=== PATIENT | female | born 2005 | race Caucasian/White ===

== ENCOUNTER 2025-08-17 20:37 | Emergency (ER) | payer OTHER ==
[2025-08-17] MEDS ORDERED: ONDANSETRON 4 MG/2 ML VIAL ONE (22:50)
[2025-08-17] MEDS ORDERED: NA CHLORIDE 0.9% 1,000 ML ONE (22:50)
[2025-08-17] MEDS ORDERED: KETOROLAC 30 MG/ML INJ ONE (22:50)
[2025-08-17 23:34] LABS: Absolute Lymphocytes (CBC) 3.0 K/uL (0.7-4.9); Hematocrit 42.1 % (36.0-45.0); Hemoglobin 14.3 g/dL (12.0-15.0); MCH 27.7 pg (27.0-35.0); MCHC 34.1 g/dL (32.0-36.0); MCV 81.2 fL (80-100); MPV 7.8 fL (7.6-11.3); Nucleated RBC Absolute Count 0.0 (0-0); Nucleated Red Blood Cells % 0.2 % (0-0); RBC Red Blood Cell Count 5.18 M/uL (3.86-4.86); White Blood Count 11.70 thou/uL (4.3-10.9)
[2025-08-17 23:45] LABS: ALT/SGPT 25.0 U/L (13-56); AST/SGOT 15.0 U/L (15-37); Albumin 3.6 g/dL (3.4-5.0); Albumin/Globulin Ratio 1.0 (1.1-1.8); Alkaline Phosphatase 60.0 U/L (45-117); Anion Gap 7.9 mEq/L (5.0-15.0); BUN Blood Urea Nitrogen 12.0 mg/dL (7-18); Globulin 3.7 g/dL (2.3-3.5); Glucose Level 89.0 mg/dL (74-106); Lipase 19.0 U/L (13-75); Potassium 3.9 mEq/L (3.5-5.1)
--- NOTE | 2025-08-18 01:07 | EDPHYS ---
Physician Documentation [facility] Name: Dionne Belle Age: 20 yrs Sex: Female : 2005 Arrival Date: 08/17/2025 Time: 20:37 Bed 8 Private MD: ED Physician Asher Soto HPI: 08/17 20:55 This 20 yrs old Female presents to ER via Ambulatory with complaints of Abdominal Pain, sb4 Vomiting/Diarrhea. 20:55 Patient reports lower abdominal pain/cramping and diarrhea for about a week now. She sb4 states that she noticed her diarrhea has been looking very "stringy" and is concerned she has worms. States she has vomited once or twice but is able to hold food and liquids down. Denies any fever or chills. Denies any urinary symptoms. Denies any recent antibiotic use. Denies any medical history. 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 - Infectious Disease History:: Denies. - Social history:: Smoking status: Reported history of juuling and/or vaping. ROS: 20:55 Constitutional: Negative for fever, chills, and weight loss, sb4 20:55 Abdomen/GI: Positive for abdominal pain, nausea, vomiting, and diarrhea, abdominal cramps, 20:55 All other systems are negative, Exam: 20:55 Head/Face: Normocephalic, atraumatic. Eyes: Extra-ocular motions intact. Periorbital sb4 areas with no swelling, redness, or edema. ENT: Mucous membranes moist. Cardiovascular: Regular rate and rhythm with a normal S1 and S2. Respiratory: No increased work of breathing, no retractions or nasal flaring. Abdomen/GI: Soft, non-tender, no distension. Skin: Warm, dry with normal turgor. Normal color with no rashes, no lesions, and no evidence of cellulitis. 20:55 Constitutional: The patient appears in no acute distress, alert, awake, obese, Vital Signs: 20:48 BP 180 / 102; Pulse 100; Resp 18; Temp 98.9; Pulse Ox 100% ; Weight 122.47 kg; Height 5 cp4 ft. 2 in. ; Pain 04/20; 08/18 00:36 BP 144 / 81; Pulse 98; Resp 19; Pulse Ox 99% on R/A; kd3 01:11 BP 150 / 79; Pulse 96; Resp 16; kb4 08/17 20:48 Body Mass Index 49.38 (122.47 kg, 157.48 cm) cp4 08/17 20:48 Pain Scale: Adult cp4 MDM: 08/17 20:41 Medical Screening Exam initiated sb4 21:00 Differential diagnosis: appendicitis, Cholelithiasis, non-specific abd pain, urinary sb4 tract infection, colitis. 08/18 01:25 Data reviewed: vital signs, nurses notes, lab test result(s), and as a result, I will sb4 discharge patient. Counseling: I had a detailed discussion with the patient and/or guardian regarding the historical points, exam findings, and any diagnostic results supporting the discharge/admit diagnosis, lab results, the need for outpatient follow up, for definitive care, to return to the emergency department if symptoms worsen or persist or if there are any questions or concerns that arise at home. ED course: Patient decided that she will leave now and just follow-up with her primary care. 08/17 20:54 Order name: CBC with Diff; Complete Time: 23:36 sb4 08/17 20:54 Order name: CMP; Complete Time: 23:46 sb4 08/17 20:54 Order name: Lipase; Complete Time: 23:46 sb4 08/17 20:54 Order name: IV Saline Lock; Complete Time: 23:31 sb4 08/17 20:54 Order name: Labs collected and sent; Complete Time: 23:31 sb4 Administered Medications: 08/17 23:17 Drug: TORadol - Ketorolac IVP 15 mg IVP once Route: IVP; Site: right forearm; [facility] 08/18 01:14 Follow up: Response: No adverse reaction [facility] 08/17 23:17 Drug: Ondansetron IVP 4 mg IVP once; over 2 minutes Route: IVP; Site: right forearm; [facility] 08/18 01:14 Follow up: Response: No adverse reaction [facility] 08/17 23:17 Drug: NS 0.9% IV 1000 ml IV at 1 bolus Per protocol; to be given as a bolus over 60 kb4 minutes Route: IV; Rate: 1 bolus; Site: right forearm; 08/18 01:14 Follow up: Response: No adverse reaction kb4 01:15 Follow up: Response: No adverse reaction; IV Status: Completed infusion kb4 Disposition: 06:25 Co-signature as Attending Physician, Asher Soto MD I agree with the assessment sp4 and plan of care. I reviewed the patient's care provided by the Advanced Practice Provider and agree with the diagnosis and treatment plan. Disposition Summary: 08/18/25 01:07 Discharge Ordered Notes: Location: Home sb4 Problem: new sb4 Symptoms: are unchanged sb4 Condition: Stable sb4 Diagnosis - Lower abdominal pain, unspecified sb4 - Diarrhea, unspecified sb4 Followup: sb4 - With: Private Physician - When: As needed - Reason: Recheck today's complaints, Re-evaluation by your physician Discharge Instructions: - Discharge Summary Sheet sb4 - Food Choices to Help Relieve Diarrhea, Adult sb4 - Abdominal Pain, Adult, [id number] sb4 Forms: - Patient Portal Instructions sb4 - Leadership Thank You Letter sb4 Signatures: Dispatcher [employer] Petra Espana PA-C PADuncanC sb4 Asher Soto MD MD sp4 Alexia Rosario 4 Kiana Baer RN RN kb4 Corrections: (The following items were deleted from the chart) 08/17 20:54 20:54 CBC+H.LAB.BRZ ordered. EDMS EDMS 20:54 20:54 COMPREHENSIVE METABOLIC PANEL+C.LAB.BRZ ordered. EDMS EDMS 20:54 20:54 LIPASE+C.LAB.BRZ ordered. EDMS EDMS 20:54 20:54 Test, Urine+UC.LAB.BRZ ordered. EDMS EDMS 20:54 20:54 UA Rfx Severino Cult if indicated+U.LAB.BRZ ordered. EDMS EDMS 20:54 20:54 Fecal Leukocyte Stain+BA.LAB.BRZ ordered. EDMS EDMS 20:54 20:54 Ova and Parasites+MR.LAB.BRZ ordered. EDMS EDMS 20:54 20:54 Rotavirus Antigen+BA.LAB.BRZ ordered. EDMS EDMS 20:54 20:54 Stool Culture+BA.LAB.BRZ ordered. EDMS EDMS 20:54 20:54 C.difficile GDH Ag \\T\\ Toxin AB+LAB.BRZ ordered. EDMS EDMS
--- NOTE | 2025-08-18 01:07 | ER ---
Nurse's Notes [facility] Name: Dionne Belle Age: 20 yrs Sex: Female : 2005 Arrival Date: 08/17/2025 Time: 20:37 Bed 8 Private MD: Diagnosis: Lower abdominal pain, unspecified;Diarrhea, unspecified Presentation: 08/17 20:48 Chief complaint: Patient states: abdominal pain, diarrhea, and vomiting that started cp4 last week. Coronavirus screen: Client denies travel out of the [place] in the last 14 days. At this time, the client does not indicate any symptoms associated with coronavirus-19. Ebola Screen: No symptoms or risks identified at this time. Initial Sepsis Screen: Does the patient meet any 2 criteria? HR > 90 bpm. No. Patient's initial sepsis screen is negative. Does the patient have a suspected source of infection? No. Patient's initial sepsis screen is negative. Risk Assessment: Do you want to hurt yourself or someone else? Patient reports no desire to harm self or others. Onset of symptoms was August 11, 2025. 20:48 Method Of Arrival: Ambulatory cp4 20:48 Acuity: ALINE 3 cp4 Triage Assessment: 20:50 General: Appears in no apparent distress. uncomfortable, Behavior is calm, cooperative, cp4 appropriate for age. Pain: Complains of pain in abdomen Pain does not radiate. Pain currently is 6 out of 10 on a pain scale. GI: Reports diarrhea, nausea, vomiting. 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 - Infectious Disease History:: Denies. - Social history:: Smoking status: Reported history of juuling and/or vaping. Screenin:34 [facility] ED Fall Risk Assessment (Adult) History of falling in the last 3 months, kb4 including since admission No falls in past 3 months (0 pts) Confusion or Disorientation No (0 pts) Intoxicated or Sedated No (0 pts) Impaired Gait No (0 pts) Mobility Assist Device Used No (0 pt) Altered Elimination Yes (1 pt) Score/Fall Risk Level 0 - 2 = Low Risk. Abuse screen: Denies threats or abuse. Denies injuries from another. Nutritional screening: No deficits noted. Tuberculosis screening: No symptoms or risk factors identified. Assessment: 23:33 Reassessment: Patient appears in no apparent distress at this time. Patient and/or kb4 family updated on plan of care and expected duration. Pain level reassessed. Patient is alert, oriented x 3, equal unlabored respirations, skin warm/dry/pink. General: Appears in no apparent distress. comfortable, Behavior is calm, cooperative. Neuro: Level of Consciousness is awake, alert, obeys commands, Oriented to person, place, time, situation. Cardiovascular: Patient's skin is warm and dry. Respiratory: Airway is patent Respiratory effort is even, unlabored, Respiratory pattern is regular, symmetrical. GI: Abdomen is round Bowel sounds present X 4 quads. Abd is soft and non tender X 4 quads. : No signs and/or symptoms were reported regarding the genitourinary system. EENT: No signs and/or symptoms were reported regarding the EENT system. Derm: No signs and/or symptoms reported regarding the dermatologic system. Musculoskeletal: No signs and/or symptoms reported regarding the musculoskeletal system. 08/18 01:10 Reassessment: pt requested to leave hospital and follow up with PCP due to waiting kb4 times. 01:11 Reassessment: Patient and/or family updated on plan of care and expected duration. Pain kb4 level reassessed. Patient is alert, oriented x 3, equal unlabored respirations, skin warm/dry/pink. General: Appears in no apparent distress. Vital Signs: 08/17 20:48 BP 180 / 102; Pulse 100; Resp 18; Temp 98.9; Pulse Ox 100% ; Weight 122.47 kg; Height 5 cp4 ft. 2 in. ; Pain 6/10; 08/18 00:36 BP 144 / 81; Pulse 98; Resp 19; Pulse Ox 99% on R/A; kd3 01:11 BP 150 / 79; Pulse 96; Resp 16; kb4 08/17 20:48 Body Mass Index 49.38 (122.47 kg, 157.48 cm) cp4 08/17 20:48 Pain Scale: Adult cp4 ED Course: 08/17 20:40 Patient arrived in ED. mr 20:41 Petra Myers PA-C is PHCP. sb4 20:41 Shyla Baumann MD is Attending Physician. sb4 20:50 Triage completed. cp4 20:50 Arm band placed on right wrist. Patient placed in waiting room. cp4 22:45 Asher Soto MD is Attending Physician. sb4 22:47 Kiana Baer, ADELFO is Primary Nurse. kb4 23:34 Patient has correct armband on for positive identification. kb4 08/18 00:00 Inserted saline lock: 20 gauge in right forearm, using aseptic technique. kb4 01:12 No provider procedures requiring assistance completed. IV discontinued, intact, kb4 bleeding controlled, No redness/swelling at site. Pressure dressing applied. 01:13 Provided Education on: follow up care . kb4 Administered Medications: 08/17 23:17 Drug: TORadol - Ketorolac IVP 15 mg IVP once Route: IVP; Site: right forearm; kb4 08/18 01:14 Follow up: Response: No adverse reaction 4 08/17 23:17 Drug: Ondansetron IVP 4 mg IVP once; over 2 minutes Route: IVP; Site: right forearm; kb4 08/18 01:14 Follow up: Response: No adverse reaction 4 08/17 23:17 Drug: NS 0.9% IV 1000 ml IV at 1 bolus Per protocol; to be given as a bolus over 60 kb4 minutes Route: IV; Rate: 1 bolus; Site: right forearm; 08/18 01:14 Follow up: Response: No adverse reaction kb4 01:15 Follow up: Response: No adverse reaction; IV Status: Completed infusion kb4 Medication: 00:37 VIS not applicable for this client. kd3 Outcome: 01:07 Discharge ordered by . sb4 01:12 Discharged to home kb4 01:12 Condition: good 01:12 Discharge instructions given to patient, Instructed on discharge instructions, follow up and referral plans. Demonstrated understanding of instructions, follow-up care, 01:16 Patient left the ED. kb4 Signatures: Clarisa Hanson Reg Reg mr GuerreroTamika, RN RN kd3 Petra Myers, PA-C PADuncanC sb4 Alexia Rosario cp4 Kiana Baer, ADELFO RN kb4
[2025-08-18 01:23] VITALS: TEMP 98.9
[2025-08-18 01:25] VITALS: O2SAT 99
[2025-08-18 01:26] VITALS: BP 150/79
== END 2025-08-18 01:16 | disposition home or self-care (01) ==
LOC: ER 20:37
DX: R10.30 Lower abdominal pain, unspecified (principal); R19.7 Diarrhea, unspecified
CPT/HCPCS: 96361; 85025; 36415; 83690; 80053; 96375; 96374; 99284; J1885; J2405; J7030